=== PATIENT | female | born 1980 | race Two or more races ===

== ENCOUNTER 2024-01-18 15:57 | Emergency (ER) | payer SELFPAY ==
[~2024-01-18] VITALS: Ht 152.4 cm; Wt 61.4 kg
[2024-01-18 16:06] VITALS: TEMP 98
[2024-01-18] MEDS: IBUPROFEN 400 MG TABLET PO ONE (16:55)
[2024-01-18 17:01] VITALS: BP 122/81; PULSE 75; RESP 18
== END 2024-01-18 17:04 | disposition home or self-care (01) ==
LOC: EMS 15:58
DX: M25.571 Pain in right ankle and joints of right foot (principal); D64.9 Anemia, unspecified; F12.90 Cannabis use, unspecified, uncomplicated; Z88.0 Allergy status to penicillin; Z91.040 Latex allergy status
CPT/HCPCS: 99283

== ENCOUNTER 2024-01-24 17:45 | Inpatient (IN) | payer MEDICAID ==
[~2024-01-24] VITALS: Ht 160 cm; Wt 61.4 kg
[2024-01-24] MEDS ORDERED: 0.9% SODIUM CHLORIDE 10 ML SYRINGE IVP PRN (18:00)
[2024-01-24] MEDS: LEVOFLOXACIN 500 MG/D5% WATER 100 ML IV ONE (18:13)
[2024-01-24] MEDS: SODIUM CHLORIDE 0.9% 1,850 ML IV ONE (18:14)
[2024-01-24 18:22] LABS: BASOPHILS % (AUTO) 0.2 % (0.0-2.0); EOSINOPHILS % (AUTO) 0.1 % (1.0-6.0); HEMATOCRIT 40.2 % (36-46); HEMOGLOBIN 13.1 g/dL (12.0-16.0); LYMPHOCYTES # (AUTO) 0.8 K/uL (1.0-4.8); LYMPHOCYTES % (AUTO) 9.8 % (22.0-44.0); MEAN CORPUSCULAR HEMOGLOBIN 26.7 pg (26.0-34.0); MEAN CORPUSCULAR HGB CONC 32.6 G/dL (31.0-37.0); MEAN CORPUSCULAR VOLUME 82 fL (80-100); MONOCYTES # (AUTO) 0.9 K/uL (0.1-1.0); NEUTROPHILS # (AUTO) 6.9 K/uL (1.8-7.7); NEUTROPHILS % (AUTO) 79.9 % (40.0-70.0); PLATELET COUNT (AUTO) 203 K/uL (150-450); RED BLOOD CELL COUNT(AUTO) 4.91 MIL/uL (4.00-5.20); RED CELL DISTRIBUTION WIDTH 16.5 % (11.5-14.5); WHITE BLOOD COUNT (AUTO) 8.7 K/uL (4.5-11.0)
[2024-01-24 18:28] LABS: ANION GAP 9 mmol/L (8-16); CALCIUM, TOTAL 8.8 mg/dL (8.8-10.5); CARBON DIOXIDE 24 mmol/L (22-29); CHLORIDE 100 mmol/L (98-107); CREATININE 0.86 mg/dL (0.60-1.30); GLOMERULAR FILTR. RATE CALC > 60 mL/min (>60); GLUCOSE,RANDOM 133 mg/dL (70-110); POTASSIUM 3.6 mmol/L (3.5-5.1); SODIUM SERUM 133 mmol/L (136-145); UREA NITROGEN, BLOOD 13 mg/dL (7-18)
[2024-01-24 18:33] LABS: INR 1.1 (0.9-1.1); PROTHROMBIN TIME 11.2 SEC (9.4-11.6)
[2024-01-24 18:34] LABS: ALANINE AMINOTRANSFERASE 32 U/L (12-78); ALBUMIN 2.9 g/dL (3.4-5.0); ALKALINE PHOSPHATASE 109 U/L (46-116); ASPARTATE AMINOTRANSFERASE 27 U/L (15-37); BILIRUBIN,TOTAL 0.5 mg/dL (0.1-1.0); TOTAL PROTEIN, SERUM 7.2 g/dL (6.4-8.2)
[2024-01-24 18:36] LABS: LACTIC ACID 1.3 mmol/L (0.4-2.0); TROPONIN I-HIGH SENSITIVITY 5 ng/L (<51)
[2024-01-24 18:53] LABS: B-TYPE NATRIURETIC PEPTIDE < 5 pg/mL (0-100)
[2024-01-24 19:25] LABS: APPEARANCE,URINE HAZY (CLEAR); BILIRUBIN,URINE NEGATIVE (NEGATIVE); COLOR,URINE YELLOW (YELLOW); GLUCOSE, URINE (UA) NEGATIVE (NEGATIVE); KETONES,URINE TRACE mg/dL (NEGATIVE); LEUKOCYTE ESTERASE ,URINE LARGE (NEGATIVE); NITRATE,URINE POSITIVE (NEGATIVE); OCCULT BLOOD,URINE SMALL (NEGATIVE); PH,URINE 6.5 (5.0-8.0); PROTEIN,URINE 30-70 mg/dL (NEGATIVE); SPECIFIC GRAVITIY, URINE 1.017 (1.003-1.030); UROBILINOGEN,URINE <=1.0 mg/dL (<=1.0)
[2024-01-24 19:33] LABS: BACTERIA,URINE Many /HPF (None Seen); WBC,URINE 51-100 /HPF (0-5)
[2024-01-24 19:50] LABS: INFLUENZA A-RTPCR,COMBO NEGATIVE (NEGATIVE); INFLUENZA B-RTPCR,COMBO NEGATIVE (NEGATIVE); RESPIRATORY SYNCYTIAL VRS-PCR NEGATIVE (NEGATIVE); SARS COVID19 RTPCR, COMBO NEGATIVE (NEGATIVE)
[2024-01-24] MEDS: ACETAMINOPHEN 500 MG TABLET PO ONE (20:26)
[2024-01-24] MEDS: *CLINICAL-LEVOFLOXACIN IVPB DOSING CLINICAL ONE (21:29)
[2024-01-24] MEDS ORDERED: ZOLPIDEM TARTRATE 5 MG TABLET PO PRN (21:30)
[2024-01-24] MEDS ORDERED: MAGNESIUM HYDROXIDE SUSPENSION 30 ML UDCUP PO PRN (21:30)
[2024-01-24] MEDS ORDERED: OxyCODONE HCL/ACETAMINOPHEN 5-325 MG TABLET PO PRN (21:30)
[2024-01-24] MEDS ORDERED: ONDANSETRON HCL 4 MG/2 ML VIAL IVP PRN (21:30)
[2024-01-24 21:32] VITALS: BP 123/72; PULSE 72; RESP 20; TEMP 100.4; O2SAT 98
[2024-01-24] MEDS: SODIUM CHLORIDE 0.9% 1,000 ML IV ONE (21:57)
[2024-01-25 00:24] VITALS: TEMP 97.8
[2024-01-25 04:21] VITALS: BP 116/65; PULSE 89; RESP 20; TEMP 98.1; O2SAT 100
[2024-01-25] MEDS ORDERED: INFLUENZA VIRUS VACCINE QVS 2023-24 (6MO+)/PF 60 MCG/0.5 ML SYRINGE IM. ONE (06:45)
[2024-01-25] MEDS: FAMOTIDINE 20 MG TABLET PO SCH (08:36)
[2024-01-25] MEDS: DOCUSATE SODIUM 100 MG CAPSULE PO SCH (08:36)
[2024-01-25 08:49] VITALS: BP 117/69; PULSE 92; RESP 20; TEMP 98.4; O2SAT 100
[2024-01-25] MEDS: MORPHINE SULFATE 2 MG/ML SYRINGE IVP PRN (09:10)
[2024-01-25 16:17] VITALS: BP 121/72; PULSE 114; RESP 20; TEMP 102.2; O2SAT 100
[2024-01-25] MEDS: ACETAMINOPHEN 325 MG TABLET PO PRN (16:28)
[2024-01-25] MEDS ORDERED: SODIUM CHLORIDE 0.9% 100 ML ONE (18:30)
[2024-01-25] MEDS: LEVOFLOXACIN 500 MG/D5% WATER 100 ML IV SCH (18:34)
[2024-01-25 19:58] VITALS: BP 97/51; PULSE 83; RESP 20; TEMP 97.9; O2SAT 99
[2024-01-25 20:27] VITALS: BP 101/57; PULSE 85; RESP 20; O2SAT 99
[2024-01-26 05:02] VITALS: BP 125/67; PULSE 87; RESP 20; TEMP 98.8; O2SAT 97
[2024-01-26 12:07] LABS: HEPATITIS C AB (EIA) Non Reactive (Non Reactive)
== END 2024-01-26 06:29 | disposition left against medical advice (07) | DRG 872 ==
LOC: EMS 17:45 → 6N 20:59
PROVIDERS: ADMIT Internal Medicine; ATTEND Internal Medicine
DX: A41.9 Sepsis, unspecified organism (principal); N12 Tubulo-interstitial nephritis, not specified as acute or chronic; Z53.29 Procedure and treatment not carried out because of patient's decision for other reasons; E86.0 Dehydration; Z20.822 Contact with and (suspected) exposure to COVID-19; Z88.0 Allergy status to penicillin
CPT/HCPCS: 0241U; 71045; 80053; 81001; 83605; 83880; 84145; 84484; 85025; 85610; 85730; 86803; 87040; 87086; 87186; 87340; 87481; 93005; 99291; J1956; J2270; J7030; J7050; 36415-L1; 36415-TC